=== PATIENT | female | born 1965 ===

== ENCOUNTER 2022-06-02 11:38 | Emergency (ER) | payer OTHER ==
[~2022-06-02] VITALS: Ht 157.5 cm; Wt 75.3 kg
[~2022-06-02 11:38] MED LIST: IBUPROFEN800 MG PO; ORPH100T PO
== END 2022-06-02 16:10 | disposition home or self-care (01) ==
LOC: ER 11:38
DX: A09 Infectious gastroenteritis and colitis, unspecified (principal)